=== PATIENT | male | born 1965 | race Caucasian/White ===

== ENCOUNTER 2021-07-05 16:06 | Emergency (ER) | payer OTHER, SELFPAY ==
--- NOTE | 2021-07-05 16:08 | XRR_ITS ---
PROCEDURE INFORMATION: Exam: XR Chest Exam date and time: 07/05/2021 4:08 PM Age: 55 years old Clinical indication: Cough with hemorrhage; Patient HX: --started coughing up blood today, significant amount TECHNIQUE: Imaging protocol: XR of the chest. Views: 2 views. COMPARISON: No relevant prior studies available. FINDINGS: Lungs: Unremarkable. No consolidation. Pleural spaces: Unremarkable. No pleural effusion. No pneumothorax. Heart/Mediastinum: Unremarkable. No cardiomegaly. Bones/joints: Unremarkable. XR/XR chest 2V* [id number] IMPRESSION: No acute findings.
[2021-07-05 17:02] VITALS: BP 151/90; PULSE 72; RESP 16; TEMP 36.8; O2SAT 100
--- NOTE | 2021-07-05 17:17 | CTR_ITS ---
PROCEDURE INFORMATION: Exam: CTA Chest With Contrast Exam date and time: 07/05/2021 5:17 PM Age: 55 years old Clinical indication: Shortness of breath; Additional info: Dyspnea/hemoptysis TECHNIQUE: Imaging protocol: Computed tomographic angiography of the chest with contrast. 3D rendering (Not supervised by radiologist): MIP and/or 3D reconstructed images were created by the technologist. Radiation optimization: All CT scans at this facility use at least one of these dose optimization techniques: automated exposure control; mA and/or kV adjustment per patient size (includes targeted exams where dose is matched to clinical indication); or iterative reconstruction. Contrast material: OMNI 350; Contrast volume: 75 ml; Contrast route: INTRAVENOUS (IV); COMPARISON: CR XR chest 2V* [id number] 07/05/2021 4:24 PM RADIATION DOSE METRICS: Total DLP (mGy-cm): 576.26 FINDINGS: Pulmonary arteries: Normal. No pulmonary emboli. Aorta: Unremarkable. No aortic aneurysm. No aortic dissection. Lungs: Mild emphysema in the upper lobes. Mild dependent atelectasis in both lungs. The lungs are otherwise clear. No consolidation. Pleural spaces: Unremarkable. No pneumothorax. No pleural effusion. Heart: Unremarkable. No cardiomegaly. No pericardial effusion. Lymph nodes: Prominent mediastinal and hilar lymph nodes, the largest measuring 1.3 cm short axis. Bones/joints: Unremarkable. No acute fracture. Soft tissues: Unremarkable. CT/CT angio chest PE protcl [id number] IMPRESSION: 1. No evidence for pulmonary embolus or acute pulmonary finding. 2. Prominent mediastinal and hilar lymph nodes are most likely reactive or inflammatory. A neoplastic process such as lymphoma cannot be entirely excluded.
--- NOTE | 2021-07-05 17:21 | W.ED.SOB ---
HPI - SOB/Dyspnea General: Chief Complaint: Shortness of Breath/Dyspnea Stated Complaint: coughing up blood Time Seen by Provider: 07/05/21 17:10 History of Present Illness: HPI Narrative: 55-year-old male presents emergency room with bib hemoptysis that began this morning. He is about 75 to 80 mL of blood in cup when he arrives here. He is not recently had any epistaxis. Patient is a smoker he denies any previous episodes of hemoptysis he is not ever had a work-up for pulmonary nodules in the past. He is not had any chest pain per se he has been a little bit short of breath at times no history of PE or DVT. He denies any chest pain now no history of coronary artery disease. He is not on any anticoagulants he does take an aspirin daily. MD elicited complaint: shortness of breath and cough Onset (ago): hour(s) Timing: intermittent Severity: moderate Exacerbating factors: coughing Relieving factors: nothing Associated symptoms: Reports hemoptysis; Deny abdominal pain, chest congestion, chest pain, cough, diaphoresis, dizziness, extremity pain, fever(s), lightheadedness, myalgias, nausea, orthopnea, palpitations, paresthesias, polydipsia, polyuria, rash, sense of impending doom, syncope or vomiting Treatment prior to arrival: none Review of Systems Const: Denies: fever(s) or diaphoresis ENMT: Denies: throat pain, ear or mastoid pain, nasal discharge or nasal congestion Card: Denies: chest pain, palpitations, lightheadedness, syncope or orthopnea Resp: Reports: hemoptysis; Denies: chest congestion GI: Denies: abdominal pain, nausea or vomiting : Denies: flank pain, dysuria, urinary frequency or urinary urgency Musc: Denies: extremity pain Skin/Breast: Denies: rash or pruritus Neuro: Denies: dizziness Endo: Denies: polyuria or polydipsia PFSH ED PFSH: Social History Smoking and tobacco status: current every day smoker Physical Exam Const: COMMON NORMALS: no acute distress GENERAL APPEARANCE: cooperative and comfortable ORIENTATION/CONSCIOUSNESS: Yes awake, Yes oriented to person, Yes oriented to place and Yes oriented to time HENMT: COMMON NORMALS: normocephalic and atraumatic HEAD & SCALP: normocephalic and atraumatic Neck/C-Spine: COMMON NORMALS: no JVD Resp: COMMON NORMALS: normal respiratory effort, No retractions, No use of accessory muscles and clear to auscultation bilaterally AUSCULTATION: clear to auscultation bilaterally Cardio: COMMON NORMALS: no JVD, regular rate, regular rhythm and No murmurs present (Cardio) RATE: regular rate RHYTHM: regular rhythm GI: COMMON NORMALS: Soft to palpation and No hepatosplenomegaly present AUSCULTATION: Yes normoactive bowel sounds PALPATION: Yes Soft to palpation, No Tenderness to palpation present (GI), No Guarding due to palpation present (GI) and Yes No hepatosplenomegaly present Extremity: COMMON NORMALS: normal to inspection, capillary refill normal, no clubbing, cyanosis or edema, no calf tenderness and no pedal edema Neuro: SENSORIUM/ORIENTATION: Yes oriented to person, Yes oriented to place and Yes oriented to time Skin: COMMON NORMALS: no rashes or lesions noted GENERAL SKIN EXAM: no rashes or lesions noted Course Vital Signs: Vital signs: Vital Signs Temperature 98.2 F 07/05/21 17:02 Pulse Rate 67 07/05/21 17:54 Respiratory Rate 26 H 07/05/21 17:54 Blood Pressure 159/101 07/05/21 17:54 Pulse Oximetry 96 07/05/21 17:54 MDM - SOB/Dyspnea MDM Narrative: Medical decision making narrative: Hemoptysis has ceased at this point. (Patient had 75-100 mL) in a cup when he arrived. CT shows mediastinal lymphadenopathy but there is no obvious mass. Will discharge patient home avoid all NSAIDs. If he has recurrence of hemoptysis that is severe return. Did warn him I suspect he may have somewhere through the weekend. At this point there is not really anything interventional to do he will need to have work-up for this we'll get him referred to pulmonology. Discussed different possibilities of other causes of the hemoptysis. For now we'll put him on doxycycline 100 mg twice a day for 7 days. Lab Data: Labs: Lab Results 07/05/21 07/05/21 07/05/21 17:50 17:50 17:50 WBC 14.3 10^3/uL H 10 ^3/uL (4.0-10.0) RBC 4.89 10^6/uL 10^6 /uL (4.1-5.3) Hgb 15.3 g/dL g/dL (11.7-16.6) Hct 45.9 % % (42.0-52.0) MCV 93.9 fl fl (80-94) MCH 31.3 pg pg (28.0-34.0) MCHC 33.3 g/dL g/dL (30.0-36.0) RDW 13.2 % % (12.1-15.1) Plt Count 206 10^3/cmm 10^3 /cmm (130-400) MPV 11.5 fL H fL (7.4-10.4) Neut % (Auto) 73.2 % % Lymph % (Auto) 20.1 % % [place] % (Auto) 5.0 % % Eos % (Auto) 0.7 % % Baso % (Auto) 0.7 % % Neut # (Auto) 10.48 10^3/uL H 1 0^3/uL (1.8-7.7) Lymph # (Auto) 2.9 10^3/uL 10^3/ uL (0.8-4.8) [place] # (Auto) 0.7 10^3/uL 10^3/ uL (0.2-0.9) Eos # (Auto) 0.1 10^3/uL 10^3/ uL (0.0-0.8) Baso # (Auto) 0.1 10^3/uL 10^3/ uL (0.0-0.1) Nucleated RBC % (a uto) 0 % % Nucleated RBCs # 0.0 /100WBC /100W BC PT 12.80 SECONDS SEC ONDS (12.1-14.9) INR 0.93 (0.8-1.2) APTT 31.2 SECONDS SECO NDS (23.9-36.7) Sodium 137 mmol/L mmol/L (136-145) Potassium 3.5 mmol/L mmol/L (3.5-5.1) Chloride 97 mmol/L L mmol/ L (98-107) Carbon Dioxide 25 mmol/L mmol/L (22-29) Anion Gap 18.5 (5-19) BUN 9 mg/dL mg/dL (6-20) Creatinine 1.0 mg/dL mg/dL (0.7-1.2) GFR Calculation 78.2 mL/min L mL/ min (90-130) Glucose 106 mg/dL mg/dL (65-115) Calculated Osmolal ity 283 mOsm/kg L mOs m/kg (285-295) Calcium 9.1 mg/dL mg/dL (8.5-10.5) Total Bilirubin 0.3 mg/dL mg/dL (0.15-1.2) AST 24 U/L U/L (0-40) ALT 43 U/L H U/L (0-41) Alkaline Phosphata se 91 IU/L IU/L (40-130) Total Protein 7.3 g/dL g/dL (6.6-8.7) Albumin 4.5 g/dL g/dL (3.5-5.2) Globulin 2.8 g/dL g/dL (1.3-4.6) Discharge Plan Discharge Patient Disposition: Home Clinical Impression: Cough with hemoptysis Condition: Stable Prescriptions: No Action hydralazine 25 mg tablet 25 mg PO TID RF: 0 omeprazole 40 mg capsule,delayed release(DR/EC) 40 mg PO DAILY RF: 0 sertraline 100 mg tablet 100 mg PO DAILY RF: 0 atorvastatin 20 mg tablet 20 mg PO DAILY RF: 0 losartan 100 mg tablet 100 mg PO DAILY RF: 0 alprazolam [Xanax] 0.25 mg tablet 0.25 mg PO BID PRNRF: 0 ytsiakhy-xnguclfpm-LP 3.5-10,000-1 mg/mL-unit/mL-% drops,suspension 3 drp otic (ear) Q8H 7 Days Qty: 10 RF: 0 Discharge Orders: Discharge ED (Routine); Ordered 07/05/21 Ordered By: Valentin Peck Patient Instructions: Opioid Safety Activity Restrictions/Additional Instructions: Case management will call to make a follow-up appointment with pulmonology for further evaluation. 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
[2021-07-05 17:54] VITALS: BP 159/101; PULSE 67; RESP 26; O2SAT 96
[2021-07-05 17:56] LABS: Basophils # 0.1 10^3/uL (0.0-0.1); Basophils % 0.7 %; Eosinophils # 0.1 10^3/uL (0.0-0.8); Eosinophils % 0.7 %; Hematocrit 45.9 % (42.0-52.0); Hemoglobin 15.3 g/dL (11.7-16.6); Lymphocytes # 2.9 10^3/uL (0.8-4.8); Lymphocytes % 20.1 %; Mean Corpuscular HGB Conc 33.3 g/dL (30.0-36.0); Mean Corpuscular Hemoglobin 31.3 pg (28.0-34.0); Mean Corpuscular Volume 93.9 fl (80-94); Mean Platelet Volume 11.5 fL (7.4-10.4); Monocytes # 0.7 10^3/uL (0.2-0.9); Neutrophils # 10.48 10^3/uL (1.8-7.7); Neutrophils % 73.2 %; Nucleated Red Blood Cells % 0 %; Platelet Count 206 10^3/cmm (130-400); Red Blood Count 4.89 10^6/uL (4.1-5.3); Red Cell Distribution Width 13.2 % (12.1-15.1); White Blood Count 14.3 10^3/uL (4.0-10.0)
[2021-07-05] MEDS: iohexol 350 mg/mL 100 mL Btl IV (18:08)
[2021-07-05 18:18] LABS: INR 0.93 (0.8-1.2)
[2021-07-05 18:19] LABS: Partial Thromboplastin Time 31.2 SECONDS (23.9-36.7)
[2021-07-05 18:29] LABS: Alanine Aminotransferase 43 U/L (0-41); Albumin Level 4.5 g/dL (3.5-5.2); Alkaline Phosphatase 91 IU/L (40-130); Anion Gap 18.5 (5-19); Aspartate Amino Transferase 24 U/L (0-40); Blood Urea Nitrogen 9 mg/dL (6-20); Calcium 9.1 mg/dL (8.5-10.5); Carbon Dioxide 25 mmol/L (22-29); Chloride 97 mmol/L (98-107); Globulin 2.8 g/dL (1.3-4.6); Glomerular Filtration Rate 78.2 mL/min (90-130); Glucose 106 mg/dL (65-115); Osmolality Calculated 283 mOsm/kg (285-295); Potassium 3.5 mmol/L (3.5-5.1); Sodium 137 mmol/L (136-145); Total Bilirubin 0.3 mg/dL (0.15-1.2); Total Protein 7.3 g/dL (6.6-8.7)
--- NOTE | 2021-07-09 12:22 | DCPLANNER ---
Addendum entered by Norma Horne 08/09/21 17:09: Patient had a follow up appointment scheduled for 08.01.[address] Chaudhary at [facility] - patient did attend appointment. Original Note: engineering program manager had message to schedule a follow up appointment for patient with [facility], Pulmonlogy. engineering program manager called [facility], spoke with Lanny Mcneal, gave clinic patients information. A follow up appointment was scheduled for Sunday, August 01, 2021 at 8:[address] Chauhdary. engineering program manager called and spoke with patients , gave her the appointment information.
== END 2021-07-05 19:23 | disposition home or self-care (01) ==
PROVIDERS: Physician Assistant; Emergency Provider Family Medicine
DX: R04.2 Hemoptysis (principal); F17.210 Nicotine dependence, cigarettes, uncomplicated
CPT/HCPCS: 71046; 71275; 80053; 85025; 85610; 85730; 99283; Q9967

== ENCOUNTER 2021-07-23 16:20 | Outpatient (CLI) | payer OTHER, SELFPAY ==
--- NOTE | 2021-07-23 | XRR_ITS ---
PROCEDURE INFORMATION: Exam: XR Chest Exam date and time: 07/23/2021 4:43 PM Age: 55 years old Clinical indication: Condition or disease; Lung condition and disease; Other: Bronchitis; Cough; Additional info: Chronic cough, bronchitis TECHNIQUE: Imaging protocol: XR of the chest. Views: 2 views. COMPARISON: CR XR chest 2V* [id number] 07/05/2021 4:24 PM FINDINGS: Lungs: No consolidation. Pleural spaces: No pleural effusion. No pneumothorax. Heart/Mediastinum: No cardiomegaly. Bones/joints: Visualized osseous structures are intact. XR/XR chest 2V* [id number] IMPRESSION: No acute findings.
== END 2021-07-23 16:21 | disposition home or self-care (01) ==
LOC: RAD 16:23
PROVIDERS: PCP Family Medicine; Visit Provider Family Medicine
DX: R50.9 Fever, unspecified (principal); R04.2 Hemoptysis; J40 Bronchitis, not specified as acute or chronic; R05.3 Chronic cough
CPT/HCPCS: 71046

== ENCOUNTER 2021-08-01 10:17 | Outpatient (CLI) | payer OTHER, SELFPAY ==
[2021-08-01 11:14] LABS: Add Urine Culture? No; Bacteria Urine TRACE /hpf; Bilirubin Urine Neg (Negative); Blood Urine Neg (Negative); Glucose Urine UA Norm (Normal); Ketones Urine Negative (Negative); Leukocyte Esterase Urine Negative (Negative); Nitrate Urine Negative (Negative); Protein Urine Neg (Negative); Squamous Epithelial Cell Urine RARE /hpf (0-5); Urine Appearance Clear (CLEAR); Urine Color Yellow (Yellow); Urobilinogen Urine Norm (Negative); pH Urine 7 (5-7)
== END 2021-08-01 10:18 | disposition home or self-care (01) ==
LOC: LAB 10:30
PROVIDERS: PCP Family Medicine; Visit Provider Internal Medicine Pulmonary Disease
DX: R04.2 Hemoptysis (principal)
CPT/HCPCS: 81001; 87635

== ENCOUNTER 2021-08-07 06:30 | Day surgery (SDC) | payer OTHER, SELFPAY ==
[2021-08-02 15:35] VITALS: BMI 34.1
[2021-08-07] VITALS (12 sets, daily range): BP systolic 81–149; BP diastolic 54–101; PULSE 82–103; RESP 18–20; TEMP 36.3–36.8; O2SAT 89–96
--- NOTE | 2021-08-07 06:45 | ANES.PREANE2 ---
Pre-Anesthetic Assessment Height/Weight: Height 1.78 m Weight 107.955 kg Operation Date: 08/07/21 07:00 Proposed Procedures p Ebus(Not Applicable) - Medardo Booker DatarMD Familial anesthetic complications: None Was Beta Edmund taken within 24 hours: Yes Last intake: > 8 hrs Social Tobacco 1 pack(s) per day 40 years pack years Exam alert, oriented x 3, clear to auscultation bilaterally and regular rate & rhythm Airway Cervical ROM: within normal limits Mallampati: Class III Dentition: other (1 tooth) Pulmonary Chronic Obstructive Pulmonary Disease CV/HEM Hypertension GI Gastroesophageal Reflux Disease Neuropsych Transient Ischemic Attack (5-6 years ago) Anesthetic Plan ASA status: 3 Anesthesia: General Medications/Allergies Home Medications Medication Instructions Recorded Confirmed Last Taken Type alprazolam 0.25 mg tablet (Xanax) 0.25 mg PO BID PRN 03/17/21 08/02/21 Unknown History atorvastatin 20 mg tablet 20 mg PO DAILY 03/17/21 08/02/21 Unknown History hydralazine 25 mg tablet 25 mg PO TID 03/17/21 08/02/21 Unknown History omeprazole 40 mg capsule,delayed 40 mg PO DAILY 03/17/21 08/02/21 Unknown History release sertraline 100 mg tablet 100 mg PO DAILY 03/17/21 08/02/21 Unknown History albuterol sulfate 90 mcg/actuation 1 inh INHALATION QID PRN #1 ea 08/01/21 08/02/21 Unknown Rx breath activated powder inhaler clonidine HCl 0.1 mg tablet See Rx Instructions PO BID 08/01/21 08/02/21 Unknown History hydrochlorothiazide 25 mg tablet 25 mg PO DAILY 08/01/21 08/02/21 Unknown History loratadine 10 mg tablet (Allergy 10 mg PO DAILY 08/01/21 08/02/21 Unknown History Relief (loratadine)) metoprolol succinate 100 mg 100 mg PO BID 08/01/21 08/02/21 Unknown History tablet,extended release 24 hr tiotropium bromide 2.5 2 puff INHALATION DAILY #4 g 08/01/21 08/02/21 Unknown Rx mcg/actuation mist for inhalation (Spiriva Respimat) Allergies Allergy/AdvReac Type Severity Reaction Status Date / Time Penicillins Allergy Unknown Unknown Verified 08/07/21 06:43 PFSH Anesthesia Social History (Updated 08/01/21 @ 08:37 by Lillian Zuniga LPN) Smoking and tobacco status: current every day smoker cigarettes Packs smoked per day: 1 Years cigarettes smoked: 40 Data Anesthesia Cardiac Studies: No Data to Display
--- NOTE | 2021-08-07 06:50 | W.PM.OPSUD ---
Surgery/Procedure H&P Update DATE OF PROCEDURE: August 07, 2021 DATE H&P PERFORMED: 08/07/21 CHANGES TO PREVIOUS DOCUMENTATION: Clinic vist 08/01/21 Mr. Erik Valencia is 55-year-old male with past medical history of centrilobular emphysema, hypertension, history of TIA, dyslipidemia comes to pulmonary clinic as [facility] ED f/u for abnormal chest imaging, productive cough with hemoptysis.? Reports cough and right sided pain started around Thanksgiving, hemoptysis started around Kenji which brought him to ED.? Has taken 3 rounds of abx since ED visit in June but no relief in symptoms until started on codeine cough syrup which decreases cough.? Reports more active he is, the more he coughs.? Denies being diagnosed with emphysema or other lung conditions, asthma, RA, KARLI.? Denies known Tb exposure.? Denies prior CT or other PFT or pulm work up previously.? Current cigarette smoker, 1ppd x 40 year Hx. patient reported that his quantity of hemoptysis as per ED physician note on 07/05/2021 patient had 75 to 80 mL of bleeding On arrival which gradually decreased to.? He was discharged with.? He was discharged with doxycycline and revealed twice a day for 7 days.? Patient reported his cough and hemoptysis started eating better gradually.? Her last 1 week he has not noticed much of bleeding.? CT in ER on 07/05/2021 showed mediastinal lymphadenopathy but there is no obvious mass.? Reported having swelling in his right axilla which was tender and had foul-smelling pus drained from a few months ago.? He noted some early spots on his anterior shins.? Denied any blurry vision, skin lesions.? reported that their son at the age of 32-who has history of recurrent bronchitis, seizures, smoking 3 packs/day for more than 10 years and has several enlarged lymph nodes in his axilla, around his neck and groin around the time of his , which was never biopsied. Today plan is to Bronchoscopic inspection of airways, , followed by endobronchial ultrasound-guided FNA C of mediastinal lymph nodes and control of bleeding. PRIMARY INDICATION FOR PROCEDURE: Prominent mediastinal hilar lymph nodes On CT imaging Inpatient presented with hemoptysis PLANNED PROCEDURE: Operation Date: 08/07/21 07:00 Proposed Procedures p Ebus(Not Applicable) - Medardo Booker DatarMD Bronchoscopic inspection of airways, , followed by endobronchial ultrasound-guided FNA C of mediastinal lymph nodes and control of bleeding. OTHER PERTINENT EXAM FINDINGS: General: alert, NAD HEENT: conj clear, EOMI, PERRL, mmm, Neck: supple, no meningismus Heme: no cervical, axillary, inguinal LAP Pulmonary: CTAB, no wheezing, rhonchi, crackles Cardiovascular: rrr, nl s1s2, no mrg Abdomen: soft, nt, nd, no r/g, bs+ Extremities: pulses +, no edema, no c/c, healed skin lesions seen on anterior shins : no CVA tenderness Skin: intact, no rash MSK: no back or neck pain Neurologic: grossly intact ADDITIONAL INFORMATION: As per anesthesia
[2021-08-07] MEDS: sodium chloride 0.9% 1,000 ML 30 ML IV (07:03)
[2021-08-07] MEDS: lidocaine 1% INJ 20 mL XX (07:54)
--- NOTE | 2021-08-07 09:04 | XR_ITS ---
WS: [id number] CHEST XRAY TECHNIQUE: Portable chest. CLINICAL INFORMATION: post EBUS COMPARISON: July 23, 2021. FINDINGS: Heart: Stable cardiomegaly. Lungs: Small amount of hazy infiltrate in the right lower lobe medially. Lungs are otherwise well aer ated. No other significant changes from previous. No pneumothorax. Bones: Normal visualized bony structures. XR/XR chest 1V portable [id number] IMPRESSION: 1. Small amount of hazy infiltrate in the right lower lobe medially appears ne w from previous. Recommend correlation for aspiration versus expected sequelae of EBUS/TBNA 2. Lungs are otherwise well aerated. 3. No other significant changes from previous.
--- NOTE | 2021-08-07 09:33 | PM.OP ---
Operative Report Date of procedure: August 07, 2021 Pre-op diagnosis: Mediastinal lymphadenopathy-rule out lymphoma/sarcoidosis Post-op diagnosis: Same Procedure done: Bronchoscopy with inspection of the airway, bronchoalveolar lavage, endobronchial ultrasound-guided transbronchial needle aspiration of mediastinal lymph nodes and control of bleeding. Brief History: Mr. Erik Valencia is 55-year-old male with past medical history of centrilobular emphysema, hypertension, history of TIA, dyslipidemia comes to pulmonary clinic as [facility] ED f/u for abnormal chest imaging, productive cough with hemoptysis.? Reports cough and right sided pain started around Thanksgiving, hemoptysis started around Kenji which brought him to ED.? Has taken 3 rounds of abx since ED visit in June but no relief in symptoms until started on codeine cough syrup which decreases cough.? Reports more active he is, the more he coughs.? Denies being diagnosed with emphysema or other lung conditions, asthma, RA, KARLI.? Denies known Tb exposure.? Denies prior CT or other PFT or pulm work up previously.? Current cigarette smoker, 1ppd x 40 year Hx. patient reported that his quantity of hemoptysis as per ED physician note on 07/05/2021 patient had 75 to 80 mL of bleeding On arrival which gradually decreased to. He was discharged with doxycycline 100 mg twice a day for 7 days.? Patient reported his cough and hemoptysis started getting better gradually.? last 1 week he has not noticed much of bleeding.? CT in ER on 07/05/2021 showed mediastinal lymphadenopathy but there is no obvious mass.? Reported having swelling in his right axilla few months ago which was tender and had foul-smelling pus drained.? He noted some red spots on his anterior shins previously which resolved. Denied any blurry vision, skin lesions.? Procedure: Name of the procedure: Bronchoscopy with inspection of the airway, bronchoalveolar lavage, endobronchial ultrasound-guided transbronchial needle aspiration of mediastinal lymph nodes and control of bleeding. Indication: mediastinal lymphadenopathy Anesthesia: General anesthesia. Local anesthesia: The lana in the right and left mainstem bronchi were anesthetized with 1% lidocaine, 3 mL. Description of the procedure: The procedure was explained to the patient and the consent was obtained. The patient was brought to the OR. The patient underwent endotracheal intubation for general anesthesia. Following induction of general anesthesia, the bronchoscope was advanced through the ET tube. The lower trachea appeared normal. The lana was sharp. The lana, the right and left mainstem bronchi are anesthetized with 1% lidocaine. In a systematic manner bilateral bronchial tree was then examined. The bronchoscope was advanced into the left mainstem bronchus. The left upper lobe, lingula and left lower lobe bronchi were examined up to the third subsegmental level and no abnormalities were identified. There is no endobronchial lesion, or active bleeding or mucous plug. The bronchoscope was then introduced into the right mainstem bronchus. The right upper lobe, right middle lobe and right lower lobe bronchi were examined up to the third subsegmental level and no abnormalities were identified. There is no endobronchial lesion, or active bleeding or mucous plug. Noted clear secretions throughout right lower lobe which were suctioned right away. The endobronchial ultrasound was introduced through the ET tube. Mediastinal and hilar lymphadenopathy was identified with the ultrasound. Lymph nodes were identified at the level of station 4R, 7, 11 R., The largest being 1.5 cm at station 4R. Transbronchial needle aspiration was performed from 4R. The bronchoscope was reintroduced and after making sure there is no active bleeding, took Bronchoalveolar lavage from the medial segment of the right middle lobe. 50 mL of saline was instilled, fluid return was 20 mL. The fluid was clear. Samples: 1. Bronchoalveolar lavage specimen was sent for cell count and differential, CD4 CD8 ratio, Gram stain and culture, fungal stain and culture, AFB stain and culture, histoplasma antigen. 2. The transbronchial needle aspiration of the aforementioned lymph node groups were sent for cytology. 1 specimen from 4R lymph node was sent for culture. Complications: There was no immediate complications. The patient was extubated and brought to the PACU in stable condition. Chest x-ray: Small amount of hazy infiltrate in the right lower lobe medially appears new from previous. Recommend correlation for aspiration versus expected sequelae of EBUS/TBNA. No pneumothorax.
[2021-08-07 10:11] LABS: Apprearance, Bronch Wash Bloody (CLEAR); Color, Bronc Wash Red
[2021-08-07 10:12] LABS: Bronch Source Right and Left Lobes; PATH Referral Yes
[2021-08-07 11:02] LABS: Total Cells Counted Bronch 20
[2021-08-10 13:17] LABS: Miscellaneous Test See Scanned Lab Rpt
[2021-08-10 21:07] LABS: Histoplasma Antigen (Quant) NONE DETECTED; Histoplasma Antigen Interpreta NEGATIVE; Histoplasma Antigen Specimen LAVAGE,BRONCHIAL
== END 2021-08-07 09:50 | disposition home or self-care (01) ==
PROVIDERS: PCP Family Medicine; Visit Provider Internal Medicine Pulmonary Disease
PROC: BB4BZZZ Ultrasonography of Pleura (ICD-10-PCS; principal; 2021-08-07 07:00)
PROC: 0BJ08ZZ Inspection of Tracheobronchial Tree, Via Natural or Artificial Opening Endoscopic (ICD-10-PCS; CPT 31622; 2021-08-07 07:00)
DX: R59.1 Generalized enlarged lymph nodes (principal); D86.9 Sarcoidosis, unspecified; F17.210 Nicotine dependence, cigarettes, uncomplicated; J44.9 Chronic obstructive pulmonary disease, unspecified; I10 Essential (primary) hypertension; K21.9 Gastro-esophageal reflux disease without esophagitis; Z86.73 Personal history of transient ischemic attack (TIA), and cerebral infarction without residual deficits
CPT/HCPCS: 31624; 31652; 71045; 80500; 87015; 87070; 87102; 87116; 87205; 87206; 87385; 87801; 88184; 88185; 88305; 89050; J0330; J1100; J2405; J2704; J2710; J3010; J3490; J7030

== ENCOUNTER 2021-08-24 18:37 | Emergency (ER) | payer OTHER, SELFPAY ==
[2021-08-24 18:44] VITALS: BP 135/77; PULSE 85; RESP 16; TEMP 36.8; O2SAT 97; BMI 32.8
--- NOTE | 2021-08-24 18:51 | XRR_ITS ---
PROCEDURE INFORMATION: Exam: XR Right Ankle Exam date and time: 08/24/2021 6:51 PM Age: 55 years old Clinical indication: Pain; Ankle; Right; Additional info: Twist injury to ankle, heard pop TECHNIQUE: Imaging protocol: XR Right ankle. Views: 3 or more views. COMPARISON: No relevant prior studies available. FINDINGS: Bones/joints: Fibular tip horizontally oriented nondisplaced fracture with overlying soft tissue swelling. Distal Achilles tendon degenerative calcification. Soft tissues: See Bones/joints finding. XR/XR ankle RT min 3V* [id number] IMPRESSION: 1. Fibular tip horizontally oriented nondisplaced fracture with overlying soft tissue swelling. 2. Distal Achilles tendon degenerative calcification.
--- NOTE | 2021-08-24 19:19 | ED_ITS ---
HPI - Extremity Problem General: Chief complaint: Extremity Injury, Lower Stated complaint: Ankle Pain Time Seen by Provider: 08/24/21 19:16 History of Present Illness: Patient is a 55-year-old male comes to the ED with a right ankle injury. Injury occurred when walking down steps during work this morning. He was stepping off one of his steps and twisted his right ankle. He says the heard a pop. Now has pain on the lateral aspect of right ankle with swelling and is unable to bear weight on right foot. Pain rated a 6 out of 10. Associated symptoms: Deny chest pain, fever(s) or rash Review of Systems Const: Denies: fever(s), chills or fatigue Eyes: Denies: change in vision or eye discomfort ENMT: Denies: throat pain, odynophagia, nasal discharge or nasal congestion Card: Denies: chest pain, palpitations, edema, swelling of feet/ankles, dyspnea on exertion or orthopnea Resp: Denies: dyspnea, productive cough or non-productive cough GI: Denies: abdominal pain, nausea, vomiting, diarrhea, constipation or hemat ochezia : Denies: flank pain, difficulty urinating, dysuria or hematuria Musc: Reports: extremity pain (right ankle) and extremity swelling (right ankle); Denies: neck pain or back pain Skin/Breast: Denies: rash or new lesions Neuro: Denies: headache(s), numbness in extremities or weakness in extremities [facility] ED PFSH: Medical History No pertinent family history Surgical History No pertinent past surgical history Social History Smoking and tobacco status: current every day smoker cigarettes Packs smoked p er day: 1 Years cigarettes smoked: 40 Physical Exam Const: COMMON NORMALS: no acute distress, patient oriented x3 and alert GENERAL APPEARANCE: cooperative and comfortable HENMT: COMMON NORMALS: normocephalic HEAD & SCALP: normocephalic MOUTH: Normal oral and palatal mucosa present THROAT: posterior oropharynx normal and uvula midline Eye: COMMON NORMALS: Equal, round and reactive pupils present PUPIL: Yes Equal, round and reactive pupils present Neck/C-Spine: COMMON NORMALS: supple GENERAL: Yes normal visual inspection Resp: COMMON NORMALS: normal respiratory effort, No retractions, No use of accessory muscles and clear to auscultation bilaterally AUSCULTATION: clear to auscultation bilaterally Cardio: COMMON NORMALS: regular rate, regular rhythm, S1 normal heart sound present, S2 normal heart sound present, No gallops present (Cardio), No clicks present (Cardio), No murmurs present (Cardio) and Peripheral pulses 2+ throughout RATE: regular rate RHYTHM: regular rhythm HEART SOUNDS: S1 normal heart sound present and S2 normal heart sound present PERIPHERAL PULSES: Peripheral pulses 2+ throughout GI: COMMON NORMALS: Normal to inspection, nondistended, normoactive bowel sounds present, Soft to palpation, non-tender and no masses PALPATION: Yes Soft to palpation : COMMON NORMALS: Yes no CVA tenderness BLADDER/KIDNEY EXAM: Yes no CVA tenderness Back/Pelvis: COMMON NORMALS: no CVA tenderness Extremity: GENERAL: Yes normal exam except as noted RIGHT LOWER EXTREMITY: Yes foot & digits Right ankle: Yes inspection (Swelling of lateral malleolus), Yes palpation (Tenderness over the lateral malleolus), Yes ROM (Limited due to pain) and Yes neurovascular exam (Intact) Neuro: COMMON NORMALS: patient oriented x3 SENSORIUM/ORIENTATION: Yes alert Skin: GENERAL SKIN EXAM: dry skin Course Vital Signs: Vital signs: Vital Signs Temperature 98.2 F 08/24/21 18:44 Pulse Rate 84 08/24/21 20:41 Respiratory Rate 18 08/24/21 20:41 Blood Pressure 138/78 08/24/21 20:41 Pulse Oximetry 99 08/24/21 20:41 MDM - Extremity (Nontraumatic) Medical Decision Making Patient is a 55-year-old male comes to the ED with right ankle injury. Right ankle?lateral malleolus tenderness and swelling noted. Limited range of motion due to pain. Neurovascular intact. Right ankle x-ray shows nondisplaced distal tip of fibular fracture. Patient was put in a posterior leg with stirrup and discharged with crutches. Diagnosed with right ankle fracture. I placed order with case technician patient be referred to Ortho for follow-up. Patient was discharged home with hydrocodone for pain. Return to ED precautions given. Patient understood and agreed with plan. Lab Data Radiology Impressions Ankle X-Ray 08/24/21 18:51 IMPRESSION: 1. Fibular tip horizontally oriented nondisplaced fracture with overlying soft tissue swelling. 2. Distal Achilles tendon degenerative calcification. Discharge Plan Discharge Patient Disposition: Home Clinical Impression: Ankle fracture Qualifiers: Encounter type: initial encounter Fracture type: closed Laterality: right Qualified Code(s): S82.891A - Other fracture of right lower leg, initial encounter for closed fracture Condition: Stable Prescriptions: No Action hydralazine 25 mg tablet 25 mg PO TID 0RF omeprazole 40 mg capsule,delayed release(DR/EC) 40 mg PO DAILY 0RF sertraline 100 mg tablet 100 mg PO DAILY 0RF atorvastatin 20 mg tablet 20 mg PO DAILY 0RF alprazolam [Xanax] 0.25 mg tablet 0.25 mg PO BID PRN (Reason: Anxiety) 0RF metoprolol succinate 100 mg tablet extended release 24 hr 100 mg PO BID 0RF clonidine HCl 0.1 mg tablet See Rx Instructions PO BID 0RF Rx Instructions: Take 1 tablet by mouth twice daily if top blood pressure greater than 160 or bottom blood pressure is greater than 100 loratadine [Allergy Relief (loratadine)] 10 mg tablet 10 mg PO DAILY 0RF hydrochlorothiazide 25 mg tablet 25 mg PO DAILY 0RF Spiriva Respimat 2.5 mcg/actuation mist 2 puff inhalation DAILY Qty: 4 3RF albuterol sulfate 90 mcg/actuation aerosol powdr breath activated 1 inh inhalation QID PRN (Reason: shortness of breath or wheezing) Qty: 1 3RF Discharge Orders: Discharge ED (Routine); Ordered 08/24/21 Ordered By: Vic Silva Referrals: Casandra Ramos MD [Primary Care Provider] - Discharge Diet: Regular Discharge Activity: Limit activity as instructed and Use walker/crutches as instructed Patient Instructions: Ankle Fracture (ED), Opioid Safety Activity Restrictions/Additional Instructions: Follow-up with medical provider as directed. Case management should be contacting the next several days to set up an appointment with orthopedic doctor for further evaluation and management of ankle fracture. Keep splint on and dry and use crutches to ambulate. No weightbearing on right ankle. Take medications as prescribed. Return to the ER or your medical provider if condition worsens. Please read and understand discharge instructions. Thank you for choosing [facility] for your healthcare needs today. Please realize this is an emergency room and that we are providing you with a medical screening exam and this may not be complete and all inclusive of all the testing and or work up that you may need to determine your ailment or severity of your illness. It is very important that you follow up as instructed or that you return to the Emergency Department should you have concerns or if your condition changes or worsens in any way. Stand Alone Forms: Work/School Release Coding Level of Care Code ED Pattern Carrier for Elleng Fwd Exam Detailed
[2021-08-24] MEDS: HYDROcodone-acetaminophen 7.5-325 mg Tablet 1 TAB PO (20:08)
[2021-08-24 20:41] VITALS: BP 138/78; PULSE 84; RESP 18; O2SAT 99
--- NOTE | 2021-08-27 10:06 | DCPLANNER ---
Addendum entered by Norma Horne 08/31/21 10:58: Patient had a follow up appointment scheduled for 08.29.21 with ortho - patient did attend appointment. Addendum entered by Norma Horne 08/28/21 07:30: Patient has a follow up appointment scheduled for Sunday, August 29, [address] at 1:[address] Sanches at ortho. Clinic will call patient with appointment information. Original Note: inbound sales manager had message to schedule a follow up appointment for patient with ortho. inbound sales manager called the ortho clinic, spoke with Lanny, gave clinic patients information. inbound sales manager was told that patients information would be printed and reviewed. Clinic will call patient with appointment information.
== END 2021-08-24 20:43 | disposition home or self-care (01) ==
PROVIDERS: Emergency Provider Physician Assistant; PCP Family Medicine
DX: S82.831A Other fracture of upper and lower end of right fibula, initial encounter for closed fracture (principal); F17.210 Nicotine dependence, cigarettes, uncomplicated; X50.1XXA Overexertion from prolonged static or awkward postures, initial encounter
CPT/HCPCS: 29515; 73610; 99283; E0114

== ENCOUNTER → 2021-08-29 08:12 | Outpatient (BNVA) | payer OTHER, SELFPAY | PROVIDERS: PCP Family Medicine; Referring Provider Physician Assistant; Visit Provider Podiatrist Foot & Ankle Surgery | DX: S82.891A Other fracture of right lower leg, initial encounter for closed fracture (principal); X58.XXXA Exposure to other specified factors, initial encounter | CPT/HCPCS: 73610 ==

== ENCOUNTER → 2021-09-11 09:03 | Outpatient (BNVA) | payer OTHER, SELFPAY | PROVIDERS: PCP Family Medicine; Visit Provider Podiatrist Foot & Ankle Surgery | DX: S82.831A Other fracture of upper and lower end of right fibula, initial encounter for closed fracture (principal); X58.XXXA Exposure to other specified factors, initial encounter | CPT/HCPCS: 73610 ==

== ENCOUNTER → 2021-10-01 09:00 | Outpatient (BNVA) | payer OTHER, SELFPAY | PROVIDERS: PCP Family Medicine; Referring Provider Internal Medicine Pulmonary Disease; Visit Provider Internal Medicine Pulmonary Disease | DX: Z20.822 Contact with and (suspected) exposure to COVID-19 (principal); J44.9 Chronic obstructive pulmonary disease, unspecified; R05.3 Chronic cough | CPT/HCPCS: 87635 ==

== ENCOUNTER 2021-10-04 13:35 | Outpatient (CLI) | payer OTHER, SELFPAY ==
--- NOTE | 2021-10-04 14:30 | PFTS_ITS ---
Date of Study:10/04/21 Date of Dictation: MECHANICS: Forced vital capacity (FVC) is normal. Forced expiratory volume in one second (FEV1) is normal. FEV1/FVC is normal. FLOW VOLUME LOOP: Normal. LUNG VOLUMES: Total lung capacity (TLC) is normal. Residual volume (RV) is normal. DIFFUSING CAPACITY FOR CARBON MONOXIDE: Normal. INTERPRETATION: The prebronchodilator spirometry is normal. Postbronchodilator spirometry is also normal. There is a significant postbronchodilator response. Lung volumes are normal. Gas exchange (DLCO) is normal. The pulmonary function test is suggestive of reversible small airways disease. MTDD
== END 2021-10-04 13:36 | disposition home or self-care (01) ==
LOC: RT 13:38
PROVIDERS: PCP Family Medicine; Visit Provider Internal Medicine Pulmonary Disease
DX: R59.0 Localized enlarged lymph nodes (principal); R04.2 Hemoptysis
CPT/HCPCS: 94060; 94618; 94726; 94729; J7611

== ENCOUNTER → 2021-10-15 08:05 | Outpatient (BNVA) | payer OTHER, SELFPAY | PROVIDERS: PCP Family Medicine; Visit Provider Podiatrist Foot & Ankle Surgery | DX: S82.831A Other fracture of upper and lower end of right fibula, initial encounter for closed fracture (principal); X58.XXXA Exposure to other specified factors, initial encounter | CPT/HCPCS: 73610 ==

== ENCOUNTER 2022-06-28 22:15 | Emergency (ER) | payer OTHER, SELFPAY ==
[2022-06-28 22:21] VITALS: BP 127/87; PULSE 82; RESP 20; TEMP 36.3; O2SAT 94; BMI 34.2
--- NOTE | 2022-06-28 22:25 | ED_ITS ---
HPI - Wound/Laceration General: Chief Complaint: Wound/Laceration Stated Complaint: right thumb lac Time Seen by Provider: 06/28/22 22:17 History of Present Illness: 56-year-old male patient comes in today for injury to the distal right thumb. 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 No flap or repairable wound is noted. Patient came in due to persistent bleeding. Patient takes aspirin daily. Patient appears nontoxic. Review of Systems Musc: Reports: extremity pain PFSH ED PFSH: Medical History No pertinent family history Surgical History No pertinent past surgical history Social History Smoking and tobacco status: current every day smoker cigarettes Packs smoked per day: 1 Years cigarettes smoked: 40 Physical Exam Const: COMMON NORMALS: alert HENMT: COMMON NORMALS: normocephalic HEAD & SCALP: normocephalic Resp: COMMON NORMALS: normal respiratory effort Cardio: COMMON NORMALS: regular rate RATE: regular rate Extremity: RIGHT UPPER EXTREMITY: Yes hand & digits (8 mm circular wound to the distal thumb) Neuro: SENSORIUM/ORIENTATION: Yes alert Skin: TRAUMA: laceration (Shaved wound distal right thumb) Course Vital Signs: Vital signs: Vital Signs Temperature 97.3 F L 06/28/22 22:21 Pulse Rate 74 06/28/22 22:43 Respiratory Rate 16 06/28/22 22:43 Blood Pressure 118/75 06/28/22 22:43 Pulse Oximetry 94 06/28/22 22:21 Oxygen Delivery Me thod 06/28/22 22:21 MDM - Wound/Laceration Medical Decision Making 56-year-old male comes in today comes in today with a injury to the distal right thumb. On exam we note a superficial avulsion of the distal tip of the right thumb. Wound is oozing blood. Differential diagnosis includes but not limited to laceration, avulsion of skin, foreign body. No signs of foreign body was noted. Wound was cauterized with a silver nitrate stick to stop bleeding. Light pressure dressing was then applied. Patient was recommended to monitor site for signs of infection follow-up with primary care or return to the ED for new concerns. Patient reported understanding agreed to plan. Discharge Plan Discharge Patient Disposition: Home Clinical Impression: Avulsion of skin Condition: Stable Prescriptions: No Action hydralazine 25 mg tablet 25 mg PO TID omeprazole 40 mg capsule,delayed release(DR/EC) 40 mg PO DAILY sertraline 100 mg tablet 100 mg PO DAILY atorvastatin 20 mg tablet 20 mg PO DAILY alprazolam [Xanax] 0.25 mg tablet 0.25 mg PO BID PRN (Reason: Anxiety) metoprolol succinate 100 mg tablet extended release 24 hr 100 mg PO BID clonidine HCl 0.1 mg tablet See Rx Instructions PO BID Rx Instructions: Take 1 tablet by mouth twice daily if top blood pressure greater than 160 or bottom blood pressure is greater than 100 loratadine [Allergy Relief (loratadine)] 10 mg tablet 10 mg PO DAILY hydrochlorothiazide 25 mg tablet 25 mg PO DAILY (DME) ASO to right See Rx Instructions .Route .MEDSUPPLY Qty: 1 0RF Rx Instructions: As directed albuterol sulfate 90 mcg/actuation aerosol powdr breath activated 1 inh inhalation QID PRN (Reason: shortness of breath or wheezing) Qty: 1 0RF Spiriva Respimat 2.5 mcg/actuation mist 2 puff inhalation DAILY Qty: 4 3RF Discharge Orders: Discharge ED (Routine); Ordered 06/28/22 Ordered By: Oren Beltran Referrals: Casandra Ramos MD [Primary Care Provider] - Patient Instructions: Skin Avulsion (ED) Activity Restrictions/Additional Instructions: Keep wound clean and dry. Follow-up with primary care in 3 to 5 days for recheck. Return to ED for fever, increasing redness and swelling of the wound, or new concerns. Coding Level of Care Code ED Rim Roller Operator for Sierra Fwd Exam Detailed
[2022-06-28 22:43] VITALS: BP 118/75; PULSE 74; RESP 16
[2022-06-28] MEDS: silver nitrate applicator 1 EACH TOPICAL (22:45)
== END 2022-06-28 23:14 | disposition home or self-care (01) ==
PROVIDERS: Emergency Provider Nurse Practitioner Family; PCP Family Medicine
DX: S61.011A Laceration without foreign body of right thumb without damage to nail, initial encounter (principal); W45.8XXA Other foreign body or object entering through skin, initial encounter; F17.210 Nicotine dependence, cigarettes, uncomplicated
CPT/HCPCS: 99282

== ENCOUNTER 2023-02-17 08:27 | Outpatient (CLI) | payer OTHER, SELFPAY ==
--- NOTE | 2023-02-17 08:33 | CT_ITS ---
WS: [id number] LDCT LUNG CANCER SCREENING HISTORY: HX OF TOBACCO USE/NICOTINE DEPENDENCE,CIGARETTES TECHNIQUE: Axial imaging performed from the apices to 1 cm below the costophrenic angles. Coronal and sagittal reformats are submitted with axial MIP series. All CT scans at [facility] use at least one of these dose optimization techniques: automated exposure control; mA and/or kV adjustment per patient size (includes targeted exams where dose is matched to clinical indication); or iterativ e reconstruction. DLP: 103.19 mGy.cm DIvol: Mean CTDIvol: 2.10 (mGy) COMPARISON: 07/05/2021 Diagnostic quality: Satisfactory Lungs: Mild hazy and groundglass attenuation throughout the lungs similar to the prior examination. P araseptal emphysema. No mass or nodules. Heart: Normal size heart with no pericardial effusion.. Other findings: Mildly prominent mediastinal and hilar lymph nodes. Similar to the prior examination from 2020. No increasing number of lymph nodes. Very minimal atherosclerosis aorta. Small hiatal [place]. Hepatic steatosis. No adrenal mass. IMPRESSION: CT/CT lung screening [id number] LUNG-RADS: 1-Negative FOLLOW UP: 12 Month: Continue annual screening with LDCT OTHER FINDINGS (S MODIFIER): None.
== END 2023-02-17 08:28 | disposition home or self-care (01) ==
PROVIDERS: PCP Family Medicine; Visit Provider Family Medicine
DX: Z12.2 Encounter for screening for malignant neoplasm of respiratory organs (principal); F17.210 Nicotine dependence, cigarettes, uncomplicated
CPT/HCPCS: 71271

== ENCOUNTER 2023-10-18 12:48 | Emergency (ER) | payer BC, SELFPAY ==
[2023-10-18 12:51] VITALS: BP 138/106; PULSE 101; RESP 17; TEMP 37; O2SAT 92
--- NOTE | 2023-10-18 12:52 | XRR_ITS ---
PROCEDURE INFORMATION: Exam: XR Chest Exam date and time: 10/18/2023 1:18 PM Age: 57 years old Clinical indication: Cough and dyspnea; Additional info: Dyspnea/cough TECHNIQUE: Imaging protocol: Radiologic exam of the chest. Views: 1 view. COMPARISON: CT lung screening [id number] 02/17/2023 8:38 AM FINDINGS: Lungs: No focal consolidation. Pleural spaces: No evidence of pneumothorax. No evidence of pleural effusion. Heart/Mediastinum: Cardiomediastinal silhouette is within normal limits. Bones/joints: No evidence of acute osseous abnormality. XR/XR chest 1V portable [id number] IMPRESSION: 1. No acute cardiopulmonary abnormality.
[2023-10-18] MEDS: ipratropium-albuterol 3 mL Neb INHALATION ×2 (13:14→13:31)
[2023-10-18 13:16] VITALS: BP 138/106; PULSE 103; RESP 22; O2SAT 94; O2SAT 98
[2023-10-18 13:19] VITALS: PULSE 93
[2023-10-18 13:31] VITALS: PULSE 95; RESP 20; O2SAT 92
[2023-10-18] MEDS: dexamethasone 10 mg/mL INJ IM (13:31)
--- NOTE | 2023-10-18 13:31 | PC.PHAR ---
pt states he takes care of his own medications-pt states he takes hydralazine 25mg qam ext shows last filled 25mg tid-pt states he has clonidine 0.1mg to take prn-pt states he takes metoprolol succinate er 100mg qam ext shows last filled 100mg bid-ext shows tadalafil 20mg q72 hours last filled 09/05/23 16d/s-notes are made in the pharmacy comments
[2023-10-18 13:33] VITALS: PULSE 92
--- NOTE | 2023-10-18 13:47 | ED_ITS ---
HPI - SOB/Dyspnea 2 General: Chief Complaint: Upper Respiratory Infection Stated Complaint: cough Time Seen by Provider: 10/18/23 12:52 Source: patient Mode of arrival: ambulatory History of Present Illness: HPI Narrative: 57-year-old male presents to the emergen cy room with complaints of cough for the last months hoarse voice. Cough has been mildly productive he has not had any hemoptysis. He has a history of COPD he is on Spiriva. No chest pain or pressure. No fever sweats or chills. No history of DVT no history of congestive heart failure known coronary artery disease MD elicited complaint: shortness of breath and cough Pertinent past history: COPD Timing: constant Severity: moderate Exacerbating factors: exertion and coughing Relieving factors: rest Known history of: COPD Associated symptoms: Reports cough; Deny abdominal pain, chest congestion, chest pain, diaphoresis, dizziness, extremity pain, fever(s), hemoptysis, lightheadedness, myalgias, nausea, orthopnea, palpitations, paresthesias, polydipsia, polyuria, rash, sense of impending doom, syncope or vomiting Treatment prior to arrival: none Review of Systems 2 Const: Denies: fever(s), chills or diaphoresis Card: Denies: chest pain, palpitations, lightheadedness, syncope or orthopnea Resp: Reports: dyspnea, productive cough and wheezing; Denies: hemoptysis or chest congestion GI: Denies: abdominal pain, nausea or vomiting : Denies: dysuria, urinary frequency or urinary urgency Musc: Denies: neck pain, back pain or extremity pain Skin/Breast: Denies: rash Neuro: Denies: dizziness Endo: Denies: polyuria or polydipsia PFSH ED 2 PFSH: Medical History No pertinent family history Surgical History No pertinent past surgical history Social History Smoking and tobacco/nicotine status: current every day tobacco/nicotine user cigarettes Packs smoked per day: 1 Years cigarettes smoked: 40 Physical Exam 2 Const: GENERAL APPEARANCE: cooperative and comfortable O RIENTATION/CONSCIOUSNESS: Yes awake, Yes oriented to person, Yes oriented to place and Yes oriented to time HENMT: COMMON NORMALS: normocephalic, atraumatic and hearing grossly normal bilaterally HEAD & SCALP: normocephalic and atraumatic Resp: COMMON NORMALS: normal respiratory effort, No retractions and No use of accessory muscles AUSCULTATION: rhonchi and wheezes Cardio: COMMON NORMALS: regular rate, regular rhythm and No murmurs present (Cardio) RATE: regular rate RHYTHM: regular rhythm GI: COMMON NORMALS: Soft to palpation and No hepatosplenomegaly present A USCULTATION: Yes normoactive bowel sounds PALPATION: Yes Soft to palpation, No Tenderness to palpation present (GI), No Guarding due to palpation present (GI) and Yes No hepatosplenomegaly present Extremity: COMMON NORMALS: normal to inspection, capillary refill normal, no clubbing, cyanosis or edema, no calf tenderness and no pedal edema Neuro: SENSORIUM/ORIENTATION: Yes oriented to person, Yes oriented to place and Yes oriented to time Skin: COMMON NORMALS: no rashes or lesions noted GENERAL SKIN EXAM: no rashes or lesions noted Course 2 Vital Signs: Vital signs: Vital Signs Temperature 98.6 F 10/18/23 12:51 Pulse Rate 92 10/18/23 13:33 Respiratory Rate 20 H 10/18/23 13:31 Blood Pressure 138/106 10/18/23 13:16 Pulse Oximetry 92 10/18/23 13:31 Oxygen Delivery Me thod Room Air 10/18/23 13:31 MDM - SOB/Dyspnea Medical Decision Making Wheezing improved some with nebulizers. D-dimer is negative EKG does not show any acute changes. White count normal chest x-ray does not show acute infiltrates or abnormalities. Will discharge home on steroid taper doxycycline add Symbicort continue Spiriva use albuterol as needed. He has seen Dr. Strickland in the past although it has been several years we will see if we can get him into see Dr. Strickland again. If his cough voice hoarseness continues follow-up with ENT his primary care can refer him for that if needed. Return if has worsening or change of symptoms Medical Records I reviewed the patient's medical records. Lab Data I reviewed the patient's lab results. 10/18/23 14:04 10/18/23 14:04 Labs/Radiology: Radiology Impressions Chest X-Ray 10/18/23 12:52 IMPRESSION: 1. No acute cardiopulmonary abnormality. Laboratory Results WBC 9.94 10^3/uL (3.29-11.43) 10/18/23 14:04 RBC 4.88 10^6/uL (3.85-5.65) 10/18/23 14:04 Hgb 15.20 g/dL (11.27-16.99) 10/18/23 14:04 Hct 46.1 % (37-53) 10/18/23 14:04 MCV 94.5 fl (82-101) 10/18/23 14:04 MCH 31.1 pg (27-33) 10/18/23 14:04 MCHC 33.0 g/dL (30-55) 10/18/23 14:04 RDW 13.9 % (12.1-15.1) 10/18/23 14:04 Plt Count 195 10^3/cmm (157-399) 10/18/23 14:04 MPV 10.6 fL (7.4-10.4) H 10/18/23 14:04 Neut % (Auto) 51.9 % 10/18/23 14:04 Lymph % (Auto) 27.5 % 10/18/23 14:04 [place] % (Auto) 6.6 % 10/18/23 14:04 Eos % (Auto) 13.0 % 10/18/23 14:04 Baso % (Auto) 0.8 % 10/18/23 14:04 Neut # (Auto) 5.16 10^3/uL (1.8-7.7) 10/18/23 14:04 Lymph # (Auto) 2.7 10^3/uL (0.8-4.8) 10/18/23 14:04 [place] # (Auto) 0.7 10^3/uL (0.2-0.9) 10/18/23 14:04 Eos # (Auto) 1.3 10^3/uL (0.0-0.8) H 10/18/23 14:04 Baso # (Auto) 0.1 10^3/uL (0.0-0.1) 10/18/23 14:04 Nucleated RBC % (auto) 0 % 10/18/23 14:04 Nucleated RBCs # 0.0 /100WBC 10/18/23 14:04 D-Dimer 0.59 ug/mLFEU (0-0.59) 10/18/23 13:30 Sodium 137 mmol/L (136-145) 10/18/23 14:04 Potassium 3.7 mmol/L (3.5-5.1) 10/18/23 14:04 Chloride 101 mmol/L (98-107) 10/18/23 14:04 Carbon Dioxide 25 mmol/L (22-29) 10/18/23 14:04 Anion Gap 14.7 (5-19) 10/18/23 14:04 BUN 9 mg/dL (6-20) 10/18/23 14:04 Creatinine 0.8 mg/dL (0.7-1.2) 10/18/23 14:04 GFR Calculation 100.4 mL/min (90-130) 10/18/23 14:04 Glucose 132 mg/dL (65-115) H 10/18/23 14:04 Calculated Osmolality 285 mOsm/kg (285-295) 10/18/23 14:04 Calcium 9.4 mg/dL (8.5-10.5) 10/18/23 14:04 Total Bilirubin 0.5 mg/dL (0.15-1.2) 10/18/23 14:04 AST 24 U/L (0-40) 10/18/23 14:04 ALT 46 U/L (0-41) H 10/18/23 14:04 Alkaline Phosphatase 123 U/L (40-130) 10/18/23 14:04 Total Protein 7.3 g/dL (6.6-8.7) 10/18/23 14:04 Albumin 4.1 g/dL (3.5-5.2) 10/18/23 14:04 Globulin 3.2 g/dL (1.3-4.6) 10/18/23 14:04 All radiology interpretation(s) finalized by discharge Discharge Plan Discharge Patient Disposition: Home Clinical Impression: Acute exacerbation of chronic obstructive pulmonary disease Condition: Stable Prescriptions: New doxycycline hyclate 100 mg capsule 100 mg PO BID 10 Days Qty: 20 0RF prednisone 20 mg tablet 20 mg PO TID Qty: 15 0RF Rx Instructions: 1 p.o. 3 times daily x3 days, 1 p.o. twice daily x2 days, 1 p.o. daily x2 days Symbicort 80-4.5 mcg/actuation HFA aerosol inhaler 2 inh inhalation BID Qty: 10.2 0RF No Action hydralazine 25 mg tablet 25 mg PO QAM omeprazole 40 mg capsule,delayed release(DR/EC) 40 mg PO QAM sertraline 100 mg tablet 100 mg PO QAM atorvastatin 20 mg tablet 20 mg PO QAM alprazolam [Xanax] 0.25 mg tablet 0.25 mg PO BID PRN (Reason: Anxiety) metoprolol succinate 100 mg tablet extended release 24 hr 100 mg PO QAM clonidine HCl 0.1 mg tablet See Rx Instructions PO BID Rx Instructions: Take 1 tablet by mouth twice daily if top blood pressure greater than 160 or bottom blood pressure is greater than 100 as needed loratadine [Allergy Relief (loratadine)] 10 mg tablet 10 mg PO QAM hydrochlorothiazide 25 mg tablet 25 mg PO QAM (DME) ASO to right See Rx Instructions .Route .MEDSUPPLY Qty: 1 0RF Rx Instructions: As directed Spiriva Respimat 2.5 mcg/actuation mist 2 puff inhalation DAILY Qty: 4 3RF losartan 100 mg tablet 100 mg PO QAM tadalafil 20 mg tablet 20 mg PO .EVERY 72 HOURS Aspir-81 81 mg Tablet,Delayed Release (Dr/Ec) 81 mg PO QAM albuterol sulfate 90 mcg/actuation HFA aerosol inhaler 1 puff INHALATION QID PRN (Reason: Shortness Of Breath) Discharge Orders: Discharge ED (Routine); Ordered 10/18/23 Ordered By: Valentin Peck Discharge Diet: Usual diet Discharge Activity: Increase activity as tolerated Patient Instructions: Opioid Safety, Pain Management Activity Restrictions/Additional Instructions: Thank you for choosing [facility] for your healthcare needs today. Please realize this is an emergency room and that we are providing you with a medical screening exam and this may not be complete and all inclusive of all the testing and or work up that you may need to determine your ailment or severity of your illness. It is very important that you follow up as instructed or that you return to the Emergency Department should you have concerns or if your condition changes or worsens in any way. Follow-up with your primary care doctor within the next 7 to 10 days. If your symptoms are persisting you may require further outpatient evaluations. Coding Level of Care Code ED Ladies' Hat Trimmer for Sierra Pepe
[2023-10-18 13:48] LABS: D Dimer 0.59 ug/mLFEU (0-0.59)
--- NOTE | 2023-10-18 13:52 | ECG_ITS ---
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 Measurements Intervals [place] Rate: 96 P: 55 NC: 169 QRS: -1 QRSD: 92 T: 66 QT: 353 QTc: 447 Interpretive Statements SINUS RHYTHM No previous ECG available for comparison Electronically Signed On 10-19-2023 20:46:41 CDT by Antonio Sesay M.D. [id number]
[2023-10-18 14:08] LABS: Basophils # 0.1 10^3/uL (0.0-0.1); Basophils % 0.8 %; Eosinophils # 1.3 10^3/uL (0.0-0.8); Hematocrit 46.1 % (37-53); Lymphocytes # 2.7 10^3/uL (0.8-4.8); Lymphocytes % 27.5 %; Mean Corpuscular Hemoglobin 31.1 pg (27-33); Mean Corpuscular Volume 94.5 fl (82-101); Mean Platelet Volume 10.6 fL (7.4-10.4); Monocytes # 0.7 10^3/uL (0.2-0.9); Monocytes % 6.6 %; Neutrophils # 5.16 10^3/uL (1.8-7.7); Neutrophils % 51.9 %; Nucleated Red Blood Cells % 0 %; Platelet Count 195 10^3/cmm (157-399); Red Blood Count 4.88 10^6/uL (3.85-5.65); Red Cell Distribution Width 13.9 % (12.1-15.1); White Blood Count 9.94 10^3/uL (3.29-11.43)
[2023-10-18 14:31] LABS: Alanine Aminotransferase 46 U/L (0-41); Albumin Level 4.1 g/dL (3.5-5.2); Alkaline Phosphatase 123 U/L (40-130); Anion Gap 14.7 (5-19); Aspartate Amino Transferase 24 U/L (0-40); Blood Urea Nitrogen 9 mg/dL (6-20); Calcium 9.4 mg/dL (8.5-10.5); Carbon Dioxide 25 mmol/L (22-29); Chloride 101 mmol/L (98-107); Creatinine Clr Calc Pharmacy 133.6082; Globulin 3.2 g/dL (1.3-4.6); Glomerular Filtration Rate 100.4 mL/min (90-130); Glucose 132 mg/dL (65-115); Osmolality Calculated 285 mOsm/kg (285-295); Potassium 3.7 mmol/L (3.5-5.1); Sodium 137 mmol/L (136-145); Total Bilirubin 0.5 mg/dL (0.15-1.2); Total Protein 7.3 g/dL (6.6-8.7)
[2023-10-18 15:01] VITALS: BP 125/84; PULSE 97; O2SAT 90
--- NOTE | 2023-10-20 08:34 | DCPLANNER ---
Message sent to Pulmonology for a follow up on COPD exacerbation
== END 2023-10-18 15:03 | disposition home or self-care (01) ==
PROVIDERS: Emergency Provider Family Medicine
DX: J44.1 Chronic obstructive pulmonary disease with (acute) exacerbation (principal); Z79.82 Long term (current) use of aspirin; F17.210 Nicotine dependence, cigarettes, uncomplicated
CPT/HCPCS: 36415; 71045; 80053; 85025; 85378; 87070; 87205; 93005; 94640; 96372; 99285; J1100